=== PATIENT | female | born 1985 ===

== ENCOUNTER 2018-10-09 17:56 | Emergency (ER) | payer OTHER ==
[2013-12-27 20:33] VITALS: BMI 29.4
[2018-10-09 19:14] VITALS: RESP 16
[2018-10-09] MEDS ORDERED: Sodium Chloride 0.9% 1,000 ML IV STA (19:56)
--- NOTE | 2018-10-09 20:32 | ED PDOC ---
HPI: General Adult Chief Complaint (Nursing): Flu-like Symptoms Chief Complaint (Provider): Flu-like Symptoms History Per: Patient, Unit Operator ([id number]) History/Exam Limitations: no limitations Onset/Duration Of Symptoms: Days (x2.5) Current Symptoms Are (Timing): Still Present Additional Complaint(s): 32 year old female presents to the ED with 2 and a half days of fever, headache, body aches and frequent dizziness. Patient denies any vomiting, dysuria, chest pain, but she had been eating and drinking less due to lack of appetite. She is 19 weeks with good care. PMD: Unable to recall name Past Medical History Reviewed: Historical Data, Nursing Documentation, Vital Signs Vital Signs: Last Vital Signs Temp 99.1 F 10/09/18 19:12 Pulse 103 H 10/09/18 19:12 Resp 16 10/09/18 19:12 BP 94/51 L 10/09/18 19:12 Pulse Ox 98 10/09/18 19:12 - Medical History PMH: No Chronic Diseases - Family History Family History: States: Unknown Family Hx - Home Medications Home Medications: Ambulatory Orders Medication Instructions Recorded Nitrofurantoin Macrocrystals 100 mg PO BID #10 cap 10/09/18 [Macrobid] - Allergies Allergies/Adverse Reactions: Allergies Allergy/AdvReac Type Severity Reaction Status Date / Time No Known Allergies Allergy Verified 10/09/18 19:11 Review of Systems ROS Statement: Except As Marked, All Systems Reviewed And Found Negative Constitutional: Positive for: Fever Cardiovascular: Negative for: Chest Pain Gastrointestinal: Positive for: Other (loss of appetite). Negative for: Vomiting Genitourinary Female: Negative for: Dysuria Musculoskeletal: Positive for: Other (body aches) Neurological: Positive for: Headache, Dizziness (frequent) Physical Exam - Reviewed Nursing Documentation Reviewed: Yes Vital Signs Reviewed: Yes - Physical Exam Appears: Positive for: Non-toxic, No Acute Distress Head Exam: Positive for: ATRAUMATIC, NORMOCEPHALIC Skin: Positive for: Normal Color, Warm, Dry Eye Exam: Positive for: EOMI, Normal appearance, PERRL Neck: Positive for: Normal Cardiovascular/Chest: Positive for: Regular Rate, Rhythm. Negative for: Murmur Respiratory: Positive for: Normal Breath Sounds. Negative for: Respiratory Distress Gastrointestinal/Abdominal: Positive for: Normal Exam, Soft, Other (gravid ). Negative for: Tenderness Back: Positive for: Normal Inspection Extremity: Positive for: Normal ROM (upper and lower). Negative for: Pedal Edema, Deformity Neurologic/Psych: Positive for: Alert, Oriented (x3) - Laboratory Results Result Diagrams: 10/09/18 20:25 10/09/18 20:25 - ECG O2 Sat by Pulse Oximetry: 98 (RA) Pulse Ox Interpretation: Normal Medical Decision Making Medical Decision Making: Time: 1955 Workup for influenza/viral syndrome Plan: --IV fluid --Tylenol for fever and body aches --reassess patient Time: 2212 --Influenza negative, symptoms improved, UA shows bacteria. Patient to be discharged home with a prescription for Macrobid. Patient to follow up with PMD/OBGYN in 1-2 days. ------- Scribe Attestation: Documented by Leslie Nuñez, acting as a scribe for Priya Nunez MD. Provider Scribe Attestation: All medical record entries made by the Scribe were at my direction and personally dictated by me. I have reviewed the chart and agree that the record accurately reflects my personal performance of the history, physical exam, medical decision making, and the department course for this patient. I have also personally directed, reviewed, and agree with the discharge instructions and di sposition. Disposition - Clinical Impression Clinical Impression: Viral syndrome, UTI (urinary tract infection) - Disposition Referrals: Benson Escobar DO [Primary Care Provider] - Disposition Time: 22:13 Condition: STABLE Additional Instructions: Drink plenty of water and rest while symptoms last. Take antibiotics twice per day for 5 days for urinary tract infection. Take Tylenol for body aches. Follow up with primary medical doctor in 3 to 5 days. Prescriptions: Nitrofurantoin Macrocrystals [Macrobid] 100 mg PO BID #10 cap Instructions: Urinary Tract Infection, Adult (DC), Viral Syndrome (DC) Forms: [facility] (Maori) Print Language: MALAY
[2018-10-09 20:46] LABS: BASO % 0.1 % (0.0-2.0); EOS % 0.3 % (0.0-4.0); HEMOGLOBIN 11.7 g/dL (12.0-16.0); MEAN CELL VOLUME 88.2 fl (81.0-99.0); MEAN CORPUSCULAR HEMOGLOBIN 29.5 pg (27.0-31.0); MEAN CORPUSCULAR HGB CONC 33.5 g/dL (33.0-37.0); MEAN PLATELET VOLUME 7.4 fl (7.2-11.7); MONO # 1.2 K/uL (0.0-0.8); MONO % 8.2 % (0.0-10.0); NEUT # 10.8 K/uL (1.8-7.0); NEUT % 77.4 % (50.0-75.0); RBC 3.97 Mil/uL (3.80-5.20); RED CELL DISTRIBUTION WIDTH 13.3 % (11.5-14.5)
[2018-10-09 20:54] LABS: SQUAMOUS EPITHIAL 3 /hpf (0-5); URINE BACTERIA MOD (<OCC); URINE BILIRUBIN NEGATIVE (NEGATIVE); URINE BLOOD NEGATIVE (NEGATIVE); URINE CLARITY SLIGHTY-CLOUDY (Clear); URINE COLOR YELLOW (YELLOW); URINE GLUCOSE (UA) NEG (NEGATIVE); URINE LEUKOCYTE ESTERASE NEG Leu/uL (Negative); URINE PROTEIN NEGATIVE (NEGATIVE); URINE UROBILINOGEN 0.2-1.0 mg/dL (0.2-1.0)
[2018-10-09 21:02] LABS: BLOOD UREA NITROGEN 5 mg/dl (7-17); CALCIUM 9.3 mg/dL (8.4-10.2); GFR NON-AFRICAN AMERICAN > 60
[2018-10-09 22:55] VITALS: TEMP 98.7
[2018-10-09 23:32] VITALS: BP 110/65; PULSE 78
--- NOTE | 2018-10-10 10:05 | OBHP ---
Datetime: 10/09/2018 18:20 IP Adm Impression: , intrauterine ; No Active Labor; Intact Membranes IP Admit Plan: Observation/Evaluation IP Admit Plan Other: Sent to ER Admit Comment, IP Provider: IUP 19w c/o body aches and fever 2-3d. She took tylenol and stephens d fever 102 at home. She has some cough. No chills. PNC; [facility] documented/folder PMH: allergies PSH: C/S NKA PSoH: denies smooking ETOH drugs POBGYNH: C/S x 1 A: IUp at 19w pssobile influenza - will send to ER for eval...spoke to ER nursing staff Abdomen - PN: Normal Back - PN: Normal Lungs - PN: Normal Heart - PN: Normal Thyroid - PN: Normal Neurologic - PN: Normal HEENT - PN: Normal General - PN: Normal FHR - Baseline A Provider: + Membranes, Provider: Intact Pool Provider: Negative IP Hx Assessment: The History has been Reviewed and is Current EGA AdmitDate IP: 19.4 IP Chief Complaint: Other Dilatation, Provider: 0
--- NOTE | 2018-10-10 10:05 | OBDCSUM ---
Datetime: 10/09/2018 18:39 Discharge Comment, Provider: sent to ER Discharge Diagnosis Prov Other: body aches/fever
[2018-10-13 12:38] VITALS: O2SAT 98
== END 2018-10-09 22:30 | disposition home or self-care (01) ==
LOC: H.EROB2 17:56 → H.ER 17:56
DX: O26.92 Pregnancy related conditions, unspecified, second trimester (principal); Z3A.19 19 weeks gestation of pregnancy; O23.42 Unspecified infection of urinary tract in pregnancy, second trimester; O99.512 Diseases of the respiratory system complicating pregnancy, second trimester; J11.1 Influenza due to unidentified influenza virus with other respiratory manifestations; O26.892 Other specified pregnancy related conditions, second trimester
CPT/HCPCS: 80048; 81003; 85025; 87804; 96360; 99282; J7030